=== PATIENT | male | born 1985 | race Caucasian/White ===

== ENCOUNTER 2016-12-24 01:49 | Emergency (ER) | payer OTHER ==
[2016-12-24] MEDS ORDERED: predniSONE 20 MG TABLET PO STA (03:29)
[2016-12-24] MEDS ORDERED: AMOX/CLAV 875 MG/125 MG TABLET PO STA (03:30)
[2016-12-24] MEDS ORDERED: AMOX/CLAV 875 MG/125 MG TABLET PO ONE (03:33)
[2016-12-24] MEDS ORDERED: predniSONE 20 MG TABLET ONE (03:33)
== END 2016-12-24 03:40 | disposition home or self-care (01) ==
DX: J32.9 Chronic sinusitis, unspecified (principal)
CPT/HCPCS: 99283; A9270; J7512

== ENCOUNTER 2017-05-08 01:19 | Emergency (ER) | payer OTHER ==
[2017-05-08] MEDS ORDERED: MECLIZINE 12.5 MG TABLET PO STA (02:36)
[2017-05-08] MEDS ORDERED: ONDANSETRON ODT 4 MG TABLET TL STA (02:36)
--- NOTE | 2017-05-08 02:38 | ED Physician Documentation ---
History of Present Illness - Stated complaint Stated Complaint: NAUSEA/DIZZINESS - Chief complaint Chief Complaint: Neuro - History obtained from History obtained from: Patient, Family - History of Present Illness Timing: How many days ago (3) - Additonal information Additional information: 31-year-old male complains of a 3 day history of dizziness and nausea.He has dizziness worse when he is laying down and moving his head. He has begun to develop some nausea with this as well. He does have a history of sinus infection and nasal congestion related to allergy. He does not feel that he has a current infection. Review of Systems Constitutional: reports: Fatigue. denies: Fever, Chills Eyes: denies: Decreased vision Ears: denies: Ear pain Nose: reports: Rhinorrhea / runny nose, Congestion Throat: denies: Sore throat Cardiac: denies: Chest pain / pressure, Palpitations Respiratory: denies: Dyspnea, Cough GI: reports: Nausea. denies: Abdominal Pain, Vomiting : denies: Dysuria, Frequency Musculoskeletal: denies: Neck pain, Back pain Neurologic: reports: Other (dizziness). denies: Generalized weakness, Focal weakness, Numbness, Headache, Head injury, LOC PD PAST MEDICAL HISTORY - Past Medical History HEENT: Other - Past Surgical History Past Surgical History: No - Present Medications Home Medications: Ambulatory Orders Medication Instructions Recorded Confirmed Meclizine HCl 25 mg PO Q6HR PRN #20 tab.chew 05/08/17 Ondansetron Odt [Zofran] 4 mg TL Q6H PRN #10 tablet 05/08/17 - Allergies Allergies/Adverse Reactions: Allergies Allergy/AdvReac Type Severity Reaction Status Date / Time No Known Drug Allergies Allergy Verified 12/24/16 02:03 - Social History Does the pt smoke?: No Smoking Status: Never smoker Does the pt drink ETOH?: No Does the pt have substance abuse?: No - Immunizations Immunizations are current?: Yes - POLST Patient has POLST: No PD ED PE NORMAL - Vitals Vital signs reviewed: Yes (normal ) - General General: No acute distress, Well developed/nourished - HEENT HEENT: Atraumatic, PERRL, EOMI, Ears normal, Moist mucous membranes, Pharynx benign, Other (There are 3 beets of nystagmus bilaterally and worse to the right ) - Neck Neck: Supple, no meningeal sign - Cardiac Cardiac: RRR, No murmur - Respiratory Respiratory: No respiratory distress, Clear bilaterally - Abdomen Abdomen: Soft, Non tender - Back Back: No CVA TTP, No spinal TTP - Derm Derm: Normal color, No rash - Extremities Extremities: No deformity, No edema - Neuro Neuro: No motor deficit, No sensory deficit - Psych Psych: Normal mood, Normal affect Results - Vitals Vitals: Vital Signs - 24 hr 05/08/17 01:28 Temperature 36.1 C L Heart Rate 74 Respiratory 16 Rate Blood Pressure 127/80 O2 Saturation 98 Oxygen O2 Source Room air PD MEDICAL DECISION MAKING - ED course Complexity details: reviewed results, re-evaluated patient, considered differential, d/w patient, d/w family ED course: 31-year-old male with a history of allergic rhinitis has developed acute labyrinthitis he does not appear to have infection today of his sinuses or his ears. He does have marked improvement with use of meclizine and Zofran for his symptoms. We will provide these medications for use at home and I have provided instructions on modified Jabari maneuvers as well. Departure - Departure Disposition: Home, Self Care Clinical Impression: Labyrinthitis Qualifiers: Laterality: bilateral Qualified Code(s): H83.03 - Labyrinthitis, bilateral Condition: Stable Instructions: ED Labyrinthitis Follow-Up: [facility] [Provider Group] Prescriptions: Meclizine HCl 25 mg PO Q6HR PRN #20 tab.chew PRN Reason: Dizziness Ondansetron Odt [Zofran] 4 mg TL Q6H PRN #10 tablet PRN Reason: Nausea / Vomiting Print Language: Burkinan
[2017-05-08] MEDS ORDERED: MECLIZINE 12.5 MG TABLET PO ONE (02:39)
[2017-05-08] MEDS ORDERED: ONDANSETRON ODT 4 MG TABLET ONE (02:39)
[2017-05-08 03:53] VITALS: BP 142/63
== END 2017-05-08 03:25 | disposition home or self-care (01) ==
LOC: ED 01:19
DX: H83.03 Labyrinthitis, bilateral (principal)
CPT/HCPCS: 99283; A9270; Q0162

== ENCOUNTER 2021-03-23 02:37 | Emergency (ER) | payer SELFPAY ==
--- OUTSIDE RECORDS SUMMARY | 2021-03-23 02:40 | EXTERNAL MEDICAL SUMMARY RPT | Continuity of Care Document ---
:1985 Demographics Phone Unavailable Preferred Language Unknown Marital Status Unknown Restoration Affiliation Unknown Race Unknown Ethnic Group Unknown Author Organization [place] Address [address] [phone] Phone Care Team Providers Name Role Phone Carroll NELSON Dianelys, Unavailable Unavailable Medications date description facility 20210122 FEXOFENADINE [facility]CL All 20210122 PREDNISONE All 20210122 FEXOFENADINE HCL All 20210122 PREDNISONE All Problems date description facility 20210122 Total score? All 20210122 Tobacco use and exposure All 20210122 Tobacco smoking status NHIS All 20210122 Seasonal allergy All 20210122 Other seasonal allergic rhinitis All 20210122 Never smoker All 20210122 Health-related behavior All 20210122 Exercise All 20210122 Details of drug misuse behavior All 20210122 Allergic rhinitis, cause unspecified A ll 20210122 Alcohol use All Vital Signs date measurement value source 20210122 weight_standard 269 lb 20210122 weight_metric 122.02 kg 20210122 temperature_standard 98.3 F 20210122 temperature_metric 36.83 C 20210122 respiration_rate 14 /min 20210122 height_standard 64.75 in 20210122 height_metric 164.47 cm 20210122 heart_rate 85 /min 20210122 BP_systolic 118 mm[Hg] 20210122 BP_diastolic 76 mm[Hg] 20210122 BMI 45.27 kg/m2
--- OUTSIDE RECORDS SUMMARY | 2021-03-23 02:46 | EXTERNAL MEDICAL SUMMARY RPT | Continuity of Care Document ---
:1985 Demographics Phone Unavailable Preferred Language Unknown Marital Status Unknown Methodist Affiliation Unknown Race Unknown Ethnic Group Unknown Author Organization [place] Address [address] [phone] Phone Care Team Providers Name Role Phone [...]
[2021-03-23] MEDS ORDERED: CHERRY SYRUP 10 ML UDC PO ONE (03:39)
[2021-03-23] MEDS ORDERED: DEXAMETHASONE 10 MG/ML VIAL PO STA (03:39)
[2021-03-23] MEDS ORDERED: ACETAMINOPHEN 325 MG TABLET PO STA (03:39)
[2021-03-23] MEDS ORDERED: CETIRIZINE 10 MG TABLET PO STA (03:39)
--- NOTE | 2021-03-23 03:40 | ED Physician Documentation ---
PD HPI URI - Stated complaint Stated Complaint: COV EXP/FEVER - Chief complaint Chief Complaint: Neuro - History obtained from History obtained from: Patient - History of Present Illness Timing - onset: How many days ago (several) Timing duration: Days (several) Timing details: Gradual onset, Still present Associated symptoms: Fever, Nasal congestion, Sinus pain, Sore throat, Dyspnea (mostly from sinus/nasal congestion and not in chest per se.). No: Productive cough Contributing factors: Sick contact (he says a coworker was Dx with COVID recently.), Unimmunized (has not had COVID vaccine as yet.). No: Immunocompromised, COPD / asthma Similar symptoms before: Has not had sx before Recently seen: Clinic (says got COVID swab in drive through testing 3 days ago, without results yet.) Review of Systems Constitutional: reports: Fever, Chills, Myalgias Nose: reports: Rhinorrhea / runny nose, Congestion, Sinus pressure / pain Throat: reports: Sore throat Cardiac: denies: Chest pain / pressure Respiratory: reports: Dyspnea. denies: Cough, Wheezing GI: denies: Nausea, Vomiting, Diarrhea Skin: denies: Rash, Lesions Neurologic: reports: Headache (frontal area). denies: Generalized weakness PD PAST MEDICAL HISTORY - Past Medical History Past Medical History: Yes Respiratory: None HEENT: Other Other Past Medical History: Seasonal allergies - Past Surgical History Past Surgical History: No - Present Medications Home Medications: Ambulatory Orders Medication Instructions Recorded Confirmed Cetirizine [ZyrTEC] 10 mg PO BID #15 tablet 03/23/21 dexAMETHasone [Decadron] 4 mg PO DAILY #5 tablet 03/23/21 - Allergies Allergies/Adverse Reactions: Allergies Allergy/AdvReac Type Severity Reaction Status Date / Time No Known Drug Allergies Allergy Verified 03/23/21 02:50 - Social History Does the pt smoke?: No Smoking Status: Never smoker Does the pt drink ETOH?: No Does the pt have substance abuse?: No - Immunizations Immunizations are current?: Yes - POLST Patient has POLST: No PD ED PE NORMAL - Vitals Vital signs reviewed: Yes - General General: Alert and oriented X 3, No acute distress, Well developed/nourished - HEENT HEENT: Ears normal, Moist mucous membranes, Pharynx benign - Neck Neck: Supple, no meningeal sign, No adenopathy - Cardiac Cardiac: RRR, No murmur - Respiratory Respiratory: Clear bilaterally - Abdomen Abdomen: Soft, Non tender - Derm Derm: Normal color, Warm and dry - Extremities Extremities: No tenderness to palpate, Normal ROM s pain - Neuro Neuro: Alert and oriented X 3, No motor deficit, Normal speech Results - Vitals Vitals: Vital Signs - 24 hr 03/23/21 03/23/21 02:40 04:31 Temperature 37.5 C 36.2 C L Heart Rate 96 84 Respiratory 18 16 Rate Blood Pressure 132/82 H 113/58 L O2 Saturation 98 98 Oxygen O2 Source Room air PD MEDICAL DECISION MAKING - ED course Complexity details: considered differential (he is concerned about COVID. Has URI/sinus symptoms. Lungs clear and no wheezing. ), d/w patient Departure - Departure Disposition: 01 Home, Self Care Clinical Impression: Exposure to COVID-19 virus Upper respiratory infection Qualifiers: URI type: unspecified URI Qualified Code(s): J06.9 - Acute upper respiratory infection, unspecified Condition: Stable Record reviewed to determine appropriate education?: Yes Instructions: ED Upper Resp Infec No Abx Tx Prescriptions: dexAMETHasone [Decadron] 4 mg PO DAILY #5 tablet Cetirizine [ZyrTEC] 10 mg PO BID #15 tablet Comments: You have a Covid test pending. You need to self quarantine until the result is done and negative. It typically results in a day (or two). Do not leave your house. Do not get near anybody. The results should be done in 48 to 72 hours, but sometimes longer. We will call with a positive result, the fastest way to get a negative result for confirmation though is to go to the hospital website at [email or web address], click on the my [email or web address] tab and sign up for the patient portal. If any friends or family get sick and would like to have a Covid test done, but do not have signs or symptoms that would necessitate being hospitalized, we encourage testing through our coronavirus swabbing station, call [phone] to schedule an appointment. Use cetirizine twice daily for sinus congestion. Decadron steroid daily for 5 days for inflammation of the sinuses and bronchioles. Stay well-hydrated. Discharge Date/Time: 03/23/21 04:32
[2021-03-23 04:32] VITALS: BP 113/58
== END 2021-03-23 04:32 | disposition home or self-care (01) ==
LOC: ED 02:37
DX: U07.1 COVID-19 (principal); J06.9 Acute upper respiratory infection, unspecified
CPT/HCPCS: 87635; 99283; 99284; A9270

== ENCOUNTER 2021-03-25 01:34 | Emergency (ER) | payer SELFPAY ==
--- OUTSIDE RECORDS SUMMARY | 2021-03-25 01:37 | EXTERNAL MEDICAL SUMMARY RPT | Continuity of Care Document ---
:1985 Demographics Phone Unavailable Preferred Language Unknown Marital Status Unknown Restorationist Affiliation Unknown Race Unknown Ethnic Group Unknown Author Organization [place] Address [address] [phone] Phone Care Team Providers Name Role Phone DO Unavailable Unavailable Medications date description facility 20210122 [...]
[2021-03-25 01:51] LABS: BASOPHILS % (AUTO) 0.2 %; EOSINOPHILS # (AUTO) 0.1 10^3/uL (0.0-0.7); EOSINOPHILS % (AUTO) 2.8 %; HCT - HEMATOCRIT 47.2 % (42.0-52.0); HGB - HEMOGLOBIN 16.7 g/dL (14.0-18.0); LYMPHOCYTES # (AUTO) 1.5 10^3/uL (1.5-3.5); LYMPHOCYTES % (AUTO) 33.6 %; MEAN CORPUSCULAR HEMOGLOBIN 30.1 pg (27.0-31.0); MEAN CORPUSCULAR HGB CONC 35.4 g/dL (32.0-36.0); MEAN PLATELET VOLUME 9.9 fL (7.4-11.4); MONOCYTES # (AUTO) 0.5 10^3/uL (0.0-1.0); MONOCYTES % (AUTO) 12.4 %; NEUTROPHILS # (AUTO) 2.2 10^3/uL (1.5-6.6); NEUTROPHILS % (AUTO) 50.5 %; PLT - PLATELET COUNT 178 10^3/uL (130-450); RED BLOOD COUNT 5.55 10^6/uL (4.70-6.10); WHITE BLOOD COUNT 4.3 x10^3/uL (4.8-10.8)
--- OUTSIDE RECORDS SUMMARY | 2021-03-25 02:01 | EXTERNAL MEDICAL SUMMARY RPT | Continuity of Care Document ---
:1985 Demographics Phone Unavailable Preferred Language Unknown Marital Status Unknown Anglican Affiliation Unknown Race Unknown Ethnic Group Unknown Author Organization [place] Address [address] [phone] Phone Care Team Providers Name Role Phone [...]
[2021-03-25 02:05] LABS: ALBUMIN 4.1 g/dL (3.2-5.5); ALBUMIN/GLOBULIN RATIO 1.5 (1.0-2.2); BILIRUBIN,TOTAL 0.8 mg/dL (0.2-1.0); CALCIUM 8.2 mg/dL (8.5-10.3); CREATININE 0.9 mg/dL (0.6-1.2); POTASSIUM 3.9 mmol/L (3.5-5.0); TOTAL PROTEIN 6.9 g/dL (6.7-8.2)
[2021-03-25] MEDS ORDERED: SODIUM CHLORIDE 0.9% 1,000 ML IV STA ×2 (02:24→04:29)
[2021-03-25] MEDS ORDERED: DEXAMETHASONE 10 MG/ML VIAL IVP STA (02:46)
--- NOTE | 2021-03-25 02:48 | ED Physician Documentation ---
PD HPI DYSPNEA - Stated complaint Stated Complaint: COVID POS, CHEST PX - Chief complaint Chief Complaint: Cardiac - History obtained from History obtained from: Patient - History of Present Illness Timing - onset: Today Timing - onset during: Rest Timing - duration: Days Timing - details: Gradual onset, Still present Inciting event(s): URI, Other (coughing) Improved by: Rest Worsened by: Coughing Associated symptoms: Fever, Cough, Wheezing, Chest pain / discomfort Similar symptoms before: Has not had sx before Recently seen: Emergency Dept - Additional information Additional information: 35-year-old maleWas exposed to Covid 1 week ago he developed symptoms and was tested and found +4 days ago. He has had a cough and some dyspnea and he is experiencing some chest pain and has come to the emergency department with this chest pain. His pain is related to his cough and it hurts to cough. He was seen in the emergency department yesterday prescribed cetirizine and dexamethasone which he did not fill. Review of Systems Constitutional: reports: Fever, Chills, Myalgias, Fatigue Eyes: denies: Decreased vision Ears: denies: Ear pain Nose: reports: Congestion Throat: reports: Sore throat Cardiac: reports: Chest pain / pressure. denies: Palpitations, Pedal edema, Calf pain Respiratory: reports: Dyspnea, Cough, Wheezing GI: denies: Abdominal Pain, Nausea, Vomiting : denies: Dysuria, Frequency Skin: denies: Rash PD PAST MEDICAL HISTORY - Past Medical History Respiratory: None HEENT: Other - Past Surgical History Past Surgical History: No - Present Medications Home Medications: Ambulatory Orders Medication Instructions Recorded Confirmed Cetirizine [ZyrTEC] 10 mg PO BID #15 tablet 03/23/21 dexAMETHasone [Decadron] 4 mg PO DAILY #5 tablet 03/23/21 - Allergies Allergies/Adverse Reactions: Allergies Allergy/AdvReac Type Severity Reaction Status Date / Time No Known Drug Allergies Allergy Verified 03/25/21 02:43 - Social History Does the pt smoke?: No Smoking Status: Never smoker Does the pt drink ETOH?: No Does the pt have substance abuse?: No - Immunizations Immunizations are current?: Yes - POLST Patient has POLST: No PD ED PE NORMAL - Vitals Vital signs reviewed: Yes (normal) - General General: Alert and oriented X 3, No acute distress, Well developed/nourished - HEENT HEENT: Atraumatic, PERRL, EOMI - Neck Neck: Supple, no meningeal sign, No bony TTP - Cardiac Cardiac: RRR, No murmur - Respiratory Respiratory: No respiratory distress, Other (diminished breath sounds focal wheeze to right mid lung field. ) - Abdomen Abdomen: Soft, Non tender - Back Back: No CVA TTP, No spinal TTP - Derm Derm: Normal color, Warm and dry, No rash - Extremities Extremities: No deformity, No edema - Neuro Neuro: Alert and oriented X 3, identification clerk 2-12 intact, No motor deficit, No sensory deficit, Normal speech Eye Opening: Spontaneous Motor: Obeys Commands Verbal: Oriented GCS Score: 15 - Psych Psych: Normal mood, Normal affect Results - Vitals Vitals: Vital Signs - 24 hr 03/25/21 03/25/21 03/25/21 01:35 02:10 02:20 Temperature 37.0 C 37.0 C Heart Rate 96 96 80 Respiratory 20 20 20 Rate Blood Pressure 100/62 100/62 80/60 L O2 Saturation 96 96 99 03/25/21 03/25/21 03/25/21 02:25 04:23 04:48 Temperature 37.8 C 37.8 C Heart Rate 77 81 73 Respiratory 20 22 23 Rate Blood Pressure 85/69 L 92/70 102/56 L O2 Saturation 99 96 95 03/25/21 05:40 Temperature 37.5 C Heart Rate 80 Respiratory 16 Rate Blood Pressure 123/74 O2 Saturation 98 Oxygen O2 Source Room air - EKG (time done) 0257 Rate: Rate (enter#) (73) QRS: Low voltage Compare to prior EKG: Old EKG unavailable Computer interpretation: Agree with computer - Labs Labs: Laboratory Tests 03/25/21 03/25/21 03/25/21 01:47 01:47 02:00 WBC 4.3 L RBC 5.55 Hgb 16.7 Hct 47.2 MCV 85.0 MCH 30.1 MCHC 35.4 RDW 13.0 Plt Count 178 MPV 9.9 Neut # (Auto) 2.2 Lymph # (Auto) 1.5 [place] # (Auto) 0.5 Eos # (Auto) 0.1 Baso # (Auto) 0.0 Absolute Nucleated RBC 0.00 Nucleated RBC % 0.0 Sodium 136 Potassium 3.9 Chloride 103 Carbon Dioxide 27 Anion Gap 6.0 BUN 17 Creatinine 0.9 Estimated GFR (MDRD) 95 Glucose 155 H Calcium 8.2 L Total Bilirubin 0.8 AST 30 ALT 58 Alkaline Phosphatase 94 Troponin I High Sens 5.8 Total Protein 6.9 Albumin 4.1 Globulin 2.8 Albumin/Globulin Ratio 1.5 Lipase 31 - Rads (name of study) chest Radiology: Prelim report reviewed (Impression: 1. No acute cardiopulmonary process.), EMP read indepedently, See rad report PD MEDICAL DECISION MAKING - ED course Complexity details: reviewed old records, reviewed results, re-evaluated patient, considered differential, d/w patient ED course: 35-year-old male with Covid presents to the emergency department with chest pain related to his cough and he has not filled the prescription from earlier in the day. He is administered dexamethasone 10 mg intravenously and he has a soft blood pressure and is administered intravenous saline as well. He has a BMI of 42.0 and he qualifies for monoclonal antibody therapy against Covid. The patient is willing to stay for infusion. Patient does respond to intravenous fluid with improvement in his blood pressure. Electrocardiogram is unremarkable troponin is normal. At shift change care is turned over to Dr. Joseph pending the monoclonal infusion. Departure - Departure Clinical Impression: COVID-19 Condition: Stable Instructions: Flu and Cold: Nutrition, Prevention and Treatment Tips Follow-Up: [facility] [Provider Group]
[2021-03-25] MEDS ORDERED: ACETAMINOPHEN 325 MG TABLET PO STA (04:12)
[2021-03-25] MEDS ORDERED: BENZONATATE 100 MG CAPSULE PO STA (07:23)
--- NOTE | 2021-03-25 07:30 | ED Physician Documentation ---
ED Addendum - Addendum Addendum: 03/25/21 07:28The patient tested positive for Covid and is having increasing cough and upper respiratory symptoms. Vitals are adequate oxygenation. He was deemed under hydrated by Dr. Castaneda and is gotten 2 L IV fluid. He was also given a dose of Decadron for inflammation of the airways. No prior history of asthma per se. He is a candidate for monoclonal infusion. Pharmacy is now in-house and I contacted them and discussed the use of the monoclonal antibodies. They will put in the order for the patient and bring it to the ER. The The patient will be discharged after infusion of the medication Regeneron. I would reinforce the ideas from the prior recent visit with antihistamine, medication for cough, possible continuation of the steroids. Stay well-hydrated and use Tylenol for pains.
[2021-03-25] MEDS ORDERED: [UNRECOGNIZED DRUG - OTHER] IV ONE (08:00)
--- NOTE | 2021-03-25 08:09 | XRAY Report ---
PROCEDURE: Chest 1 View X-Ray INDICATIONS: chest pain TECHNIQUE: One view of the chest was acquired. COMPARISON: None. FINDINGS: Surgical changes and devices: None. Lungs and pleura: No pleural effusions or pneumothorax. Lungs are difficult to accurately assess du e to reduced inspiratory volume. There is crowding of the bronchovascular markings, but there may als o be superimposed slight pulmonary edema.. Mediastinum: Mediastinal contours appear normal. Heart size is normal. Bones and chest wall: No suspicious bony lesions. Overlying soft tissues appear unremarkable. IMPRESSION: Reduced inspiration, crowding of bronchovascular markings, possible superimposed slight alveolar rito a pattern, which could be a manifestation of cardiogenic pulmonary edema in this clinical circumstanc e. Reviewed by: Brady Akins MD on 03/25/2021 8:08 AM PDT Approved by: Brady Akins MD on 03/25/2021 8:08 AM PDT Station ID: [id number]
[2021-03-25 09:55] VITALS: BP 112/76
== END 2021-03-25 09:50 | disposition home or self-care (01) ==
LOC: ED 01:34
DX: U07.1 COVID-19 (principal); R07.9 Chest pain, unspecified; Z68.41 Body mass index [BMI] 40.0-44.9, adult
CPT/HCPCS: 36415; 71045; 80053; 83690; 84484; 85025; 93005; 96361; 96374; 99284; A9270; J7040; M0243; Q0243